=== PATIENT | female | born 1995 ===

== ENCOUNTER 2017-10-21 12:49 | Emergency (ER) | payer OTHER ==
[~2017-10-21 12:49] MED LIST: ONDA4TAB PO; SULF-198 PO
[2017-10-21] MEDS ORDERED: BUPR-126 PO (13:02)
[2017-10-21] MEDS ORDERED: BUPR-472 PO (13:02)
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
[2017-10-21 15:13] VITALS: BP 110/79
== END 2017-10-21 15:12 | disposition home or self-care (01) ==
LOC: ER 13:03
DX: S60.511A Abrasion of right hand, initial encounter (principal); S09.90XA Unspecified injury of head, initial encounter; S16.1XXA Strain of muscle, fascia and tendon at neck level, initial encounter
CPT/HCPCS: 70450; 70486; 72125; 81025; 99283; L0172